=== PATIENT | male | born 1935 | race Caucasian/White ===

== ENCOUNTER 2023-02-01 06:37 | Observation (INO) ==
--- NOTE | 2023-01-17 09:26 | PAT Medication Instructions ---
Medication Instructions Date of Service January 17, 2023 Home Medications allopurinol 300 mg tablet 300 mg PO QAM aspirin 81 mg capsule 81 mg PO QAM biotin 5,000 mcg chewable tablet 5,000 mcg PO QAM cetirizine 10 mg tablet (Zyrtec) 10 mg PO QAM cholecalciferol (vitamin D3) 50 mcg (2,000 unit) tablet (Vitamin D3) 50 mcg PO QAM citalopram 40 mg tablet 40 mg PO QAM cyanocobalamin (vitamin B-12) 500 mcg tablet (Vitamin B-12) 500 mcg PO QAM mirtazapine 30 mg tablet 30 mg PO HS mometasone 0.1 % topical solution 1 applic topical HS mometasone 50 mcg/actuation nasal spray 1 spray intranasal QAM omeprazole 40 mg capsule,delayed release 40 mg PO QAM STOP taking 2 weeks before surgery (or as soon as possible if surgery is within 2 weeks) biotin 5,000 mcg chewable tablet 5,000 mcg PO QAM DO NOT take the morning of surgery cetirizine 10 mg tablet (Zyrtec) 10 mg PO QAM cholecalciferol (vitamin D3) 50 mcg (2,000 unit) tablet (Vitamin D3) 50 mcg PO QAM cyanocobalamin (vitamin B-12) 500 mcg tablet (Vitamin B-12) 500 mcg PO QAM Take morning of surgery With a small sip of water, OTHERWISE NOTHING TO EAT OR DRINK AFTER MIDNIGHT: allopurinol 300 mg tablet 300 mg PO QAM aspirin 81 mg capsule 81 mg PO QAM (unless directed otherwise by surgeon) citalopram 40 mg tablet 40 mg PO QAM mometasone 50 mcg/actuation nasal spray 1 spray intranasal QAM omeprazole 40 mg capsule,delayed release 40 mg PO QAM Take evening before surgery mirtazapine 30 mg tablet 30 mg PO HS mometasone 0.1 % topical solution 1 applic topical HS Other Notes If you have any questions please call us at [phone] or [phone] or [phone] or [phone]
--- NOTE | 2023-01-23 12:15 | Anesthesiology Consultation ---
Date of Service January 23, 2023 Assessment & Plan (1) Encounter for pre-operative examination: Chart Review Chart Review: Pending: Refer to Additional Notes / Consult section (pending surgeon ordered PCP clearance ) and Patient seen in Pre Admission Testing - Please fax preop testing results to PCP- [facility] [place], [place] (office phone number ; fax number [phone])- awaiting surgeon ordered PCP clearance (PCP awaiting preop testing) - Patient is NOT an OPJ candidate Per PAT appt on 01/23/23- no recent Covid exposures, Covid related symptoms, or recent Covid positive tests. Will leave to surgeon's discretion if preop Covid testing needed. Educated on importance of using Covid precautions one week prior to surgery Teaching & Discussion Pre-Anesthesia Teaching/Discussion Notes: Instructed NPO after midnight before surgery,except medications with 15 cc of water. Medication instructions provided according to the PAT guidelines. History Surgery Operation Date: 02/01/23 08:50 Proposed Procedures p Right Total Hip Arthroplasty Hybird with Cemented Femoral Stem and Dual Mobillity Cup - Jason Carmona MD Height/Weight Height: 5 ft 5.5 in Weight: 94.6 kg Allergies Allergy/AdvReac Type Severity Reaction Status Date / Time ciprofloxacin [From Cipro] Allergy Intermediate Hives Verified 01/12/23 10:13 Sulfa (Sulfonamide Allergy Intermediate Hives Verified 01/12/23 10:13 Antibiotics) Medications Home Medications Medication Instructions Recorded Confirmed Last Taken allopurinol 300 mg tablet 300 mg PO QAM 01/12/23 01/12/23 Unknown aspirin 81 mg capsule 81 mg PO QAM 01/12/23 01/12/23 Unknown biotin 5,000 mcg chewable tablet 5,000 mcg PO QAM 01/12/23 01/12/23 Unknown cetirizine 10 mg tablet (Zyrtec) 10 mg PO QAM 01/12/23 01/12/23 Unknown cholecalciferol (vitamin D3) 50 50 mcg PO QAM 01/12/23 01/12/23 Unknown mcg (2,000 unit) tablet (Vitamin D3) citalopram 40 mg tablet 40 mg PO QAM 01/12/23 01/12/23 Unknown cyanocobalamin (vitamin B-12) 500 500 mcg PO QAM 01/12/23 01/12/23 Unknown mcg tablet (Vitamin B-12) mirtazapine 30 mg tablet 30 mg PO 01/12/23 01/12/23 Unknown mometasone 0.1 % topical solution 1 applic topical 01/12/23 01/12/23 Unknown mometasone 50 mcg/actuation nasal 1 spray intranasal [facility] 01/12/23 01/12/23 Unknown spray omeprazole 40 mg capsule,delayed 40 mg PO QA 01/12/23 01/12/23 Unknown release Past Medical History Medical History Bladder stones History- cystolithopaxy September 2022 Chronic back pain Lower back Chronic sinusitis At baseline as of 01/23/23 PAT appt Depression GERD (gastroesophageal reflux disease) Well controlled and stable with medication Gout No recent issue History of COVID-11 September 2022 -> flu like symptoms. treated with paxlovid. no current problems History of diverticulitis (2020) flare up -> treated in 04/2021. no problems since. History of prostate cancer (1997) prostatectomy only- no chemo or XRT Hx of basal cell carcinoma s/p excision (Mohs procedure) right ear Hyperlipidemia hx - no problems since weightloss years ago Hypertension hx - no problems since weightloss years ago Kidney stones hx - reason for allopurinol Pulmonary embolism (2020) 2020 d/t a period of time of inactivity r/t being ill and treated with eliquis x 4 months. no problems since. Seasonal allergies Sleep apnea S/p sinus surgery/tonsillectomy/adenoidectomy/UPPP. was unsuccessful. patient had an at home sleep study on 01/10/23 and awaiting the results from [facility] [place] & PCP. Exercise / Class Metabolic Activity III < 4 Walking/Shop/Light housework (one flight of stairs- no chest pain or SOB- goes slow - seldom use of cane ) Past Family History Family History Other No family history of adverse response to anesthesia Past Surgical History Surgical History History of adenoidectomy History of bladder surgery cytolitholapaxy History of cataract surgery bilateral History of cholecystectomy History of colonoscopy History of esophagogastroduodenoscopy (EGD) History of nasal septoplasty History of tonsillectomy Hx of lithotripsy Hx of prostatectomy Hx of removal of cyst mandibular cyst removal S/P epidural steroid injection 1+ years ago S/P Mohs surgery for basal cell carcinoma Status post uvulopalatopharyngoplasty Past Anesthesia History No Hx of Anesthesia Complications and No Family Hx of Anesthesia Complications History of PONV No Hx of PONV and No Hx of Motion Sickness Social History Smoking Status: Never smoker Do You Dip or Chew Tobacco: No Hx Alcohol Use: Yes Alcohol type: wine and hard liquor alcohol intake frequency: a few times a week Hx Substance Use: No substance use type: does not use Review of Systems Patient denies chest pain, shortness of breath, dyspnea on exertion, cough, wheezing, palpitations. No hx of seizures, stroke, CA. No hx of blood transfusions Physical Exam Vital Signs VITALS BP 125/89 P 84 TEMP 98.1 SP02 93% RESP 16 Constitutional no acute distress ENMT Mouth: no TMJ clicking Thyromental Distance: > or= 3.5 Finger Breadths (3.5) Mallampati Class: I Missing molars and side teeth Possible crown to side tooth Neck + limited neck extension Respiratory normal respiratory effort; no respiratory distress Auscultation: lungs clear to auscultation bilaterally; no wheezes Cardiovascular Rate/Rhythm: regular rate and regular rhythm Heart Sounds: no murmur Vessels: no carotid bruit Musculoskeletal Spine: + pain with cervical ROM (stiffness ) Extremities: extremities normal to inspection Psychiatric Orientation: alert Lab Results Anesthesia Preop Results Results Anesthesia Widget: WBC 9.93 K/ul (4.8-10.8) 01/23/23 Hgb 13.4 g/dl (14.0-18.0) L 01/23/23 Hct 41.4 % (42.0-52.0) L 01/23/23 Plt 226 K/uL (130-400) 01/23/23 Na 138 mmol/L (136-145) 01/23/23 K 4.7 mmol/L (3.5-5.1) 01/23/23 Cl 104 mmol/L (98-107) 01/23/23 CO2 29 mmol/L (21-32) 01/23/23 BUN 17 mg/dl (6-23) 01/23/23 Creat 1.43 mg/dl (0.6-1.4) H 01/23/23 Glucose Level 85 mg/dl (70-99(Fasting)) 01/23/23 PT 10.7 Seconds (9.0-12.0) 01/23/23 PTT 28.2 Seconds (21.0-31.0) 01/23/23 INR 1.0 (0.9-1.1) 01/23/23 Urine Color Yellow 01/23/23 Urine Appearance Clear (Clear) 01/23/23 Urine pH 5.5 (4.5-7.5) 01/23/23 Urine Specific [place] 1.024 (1.000-1.030) 01/23/23 Urine Protein 3+ (Negative) H 01/23/23 Urine Glucose (UA) Negative (Negative) 01/23/23 Urine Ketones Trace (Negative) H 01/23/23 Urine Blood Trace (Negative) H 01/23/23 Urine Nitrite Negative (Negative) 01/23/23 Urine Bilirubin Negative (Negative) 01/23/23 Urine Urobilinogen Negative (Negative) 01/23/23 Urine Leukocyte Esterase Negative (Negative) 01/23/23 Urine WBC (Auto) 1-5 /hpf (0-5) 01/23/23 Urine RBC (Auto) 0-4 /hpf (0-4) 01/23/23 Urine Hyaline Casts (Auto) 5-10 /lpf (0-5) H 01/23/23 Urine Epithelial Cells (Auto) 10-20 /lpf (0-5) H 01/23/23 Urine Bacteria (Auto) Negative (Negative) 01/23/23 Blood Type O Positive 01/23/23 Antibody Screen NEGATIVE 01/23/23 Testing Laboratory Results Elevated creatinine- presumed chronic and stable- creat 1.3 with 12/28/22 labs Electrocardiogram Date: 01/23/23 Findings: + NSR @ (79bpm ) Possible inferior infarct (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 No prior studies are available for comparison at the time of dictation. The heart is mildly enlarged noting atherosclerotic calcification of the thoracic aorta. The pulmonary vasculature is noncongested. Chronic interstitial thickening is previous. There is bibasilar scarring/atelectasis. The lungs and pleural spaces are otherwise clear. There is no pneumothorax. The skeletal structures are osteopenic. The bony thorax appears intact. Degenerative change is noted in the spine. Cholecystectomy clips are seen in the upper abdomen. IMPRESSION: Cardiomegaly with no active disease in the chest.
[~2023-02-01 06:37] MED LIST: DEXAMETHASONE SOD INJ 4 MG/ML VIAL ONE; LIDOCAINE 2% 2 ML VIAL/AMP(20MG/ML) INFIL ONE; LR 500ML BOLUS, THEN 15ML/HR IV SCH; LR 60ML/HR IV SCH; MIDAZOLAM HCL 1 MG/ML 2ML VIAL ONE; ONDANSETRON INJ 2 MG/ML 2 ML VIAL ONE; PROPOFOL IV EMULSION 10 MG/ML 20 ML VIAL IV ONE; ROPIVACAINE 0.5% HCL/PF 150 MG, BUPIVACAINE 0.75% MPF 20 ML, EPINEPHrine 0.15 MG, Ketor... INFIL SCH; TRANEXAMIC ACID 1,000 MG x 1 **For Topical Use TOP SCH; ceFAZolin 2000MG 2,000 MG/15 ML SYR IV SCH; fentaNYL citrate PF 100 MCG/2 ML VIAL ONE
[2023-02-01] MEDS ORDERED: BUPIVACAINE 0.5 % 5 MG/1 ML PF 10ML VIAL ONE (06:45)
[2023-02-01] MEDS ORDERED: PROMETHAZINE HCL 12.5 MG in SODIUM CHLORIDE 0.9% 50 ML IV PRN (08:22)
[2023-02-01] MEDS ORDERED: HYDROmorphone INJ 1 MG/ML SYRINGE IV PRN (08:22)
[2023-02-01] MEDS ORDERED: ePHEDrine sulfate 50 MG/ML AMP IV PRN (08:22)
[2023-02-01] MEDS ORDERED: ONDANSETRON INJ 2 MG/ML 2 ML VIAL IV PRN ×2 (08:22→12:16)
[2023-02-01] MEDS ORDERED: ATROPINE SULFATE 0.1 MG/ML 10ML SYR IV PRN (08:22)
[2023-02-01] MEDS ORDERED: ORTHO JOINT ANESTHETIC ONE (08:46)
--- NOTE | 2023-02-01 08:46 | History & Physical Bridge Note ---
Date of Service February 01, 2023 History & Physical Bridge Note I have examined the patient, reviewed the History & Physical and in the interval since the performance of the History & Physical I have noted the following changes of clinical significance: consent obtained/site verified/discussed cement utilization.no changes noted.
[2023-02-01] MEDS ORDERED: PHENYLEPHRINE 100MCG/ML 5ML SYR ONE (09:36)
[2023-02-01] MEDS ORDERED: ePHEDrine sulfate 50 MG/ML SYR ONE (09:36)
--- NOTE | 2023-02-01 10:58 | Post Operative Brief Note ---
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
--- NOTE | 2023-02-01 11:05 | Operative Report ---
Post Operative Report Pre & Post Diagnosis Operation Date: 02/01/23 08:50 Pre-Op Diagnosis: Right Hip End-Stage Degenerative Joint Disease Post-Op Diagnosis: Right Hip End-Stage Degenerative Joint Disease I identified the patient and participated in the time-out.: Yes Procedure Operation Date: 02/01/23 08:50 Actual Procedures p Right Total Hip Arthroplasty Hybird with Cemented Femoral Stem and Dual Mobillity Cup(Right) - Jason Carmona MD Surgeon Jason Carmona MD Credit Operations Specialist Pb/Matt Estimated Blood Loss 200 Findings Consistent with Post-Op Diagnosis Severe DJD right hip Fluids See anesthesia report Specimens Bone specimens Drains None Complications None Indications Severe right hip pain Description of Procedure Medically cleared male with intractable right hip pain is cleared for surgery has a somewhat higher risk than normal based on age and comorbidities. Due to his age it was elected to use cement for the femur. He understands risk and consequences. Due to his age and a stiff back dual mobility cup was also elected. Procedure patient identified site provide consent provide antibiotics for him to be given the patient was placed in the left lateral cubitus position right lower extremity prepped and draped routine fashion. Posterior approach to the hip made. Sharp dissection to the fascia blunt dissection down to subcutaneous tissue along the fascia. Once good flaps were raised the fascia was then incised with the thermal device and retractors placed care taken to protect the sciatic nerve which was palpated. Once this was done the short external rotators were released the capsule was then teed the hip was dislocated the femoral neck resected. It was severely deformed. Acetabular exposure was excellent. There was some marked osteophytes around the rim these were excised. The labrum was all excised. The serial reaming was carried up to a size 52 and a 52 cup impacted into position and secured with a 6.5 x 30 screw with excellent purchase. The permanent dual mobility liner was then seated. Femur was then flexed and internally rotated proximal femur. With a box printing machine operator canal finder reaming rasps and then the size 2 trial was was carried out the lateralized stem was way too tight. Normal offset was excellent. +4 head was excellent. The stability was excellent the leg lengths were relatively equal. The hip was then dislocated the trial elements remaining were removed wound was irrigated with Betadine Pulsavac and the permanent stem cemented into position with a canal restrictor and cement spacing. After 14 minutes the cement was cured everything was cleaned and then the permanent head and neck seated and then the hip reduced and was stable in all planes. It was then ramírez irrigated and closed with #2 Vicryl for the capsule for the short external rotators for the IT band and for the deep fat the wound was then injected with Ortho mix and then the superficial tissue closed with 2-0 Vicryl and standstill clips appropriate dressing applied patient transferred recovery in satisfactory addition he tolerated the procedure well. Summary of implants size 52 acetabular shell sector cup: Meter cancellous screw 6.5 x 3052 metal liner 2 standard cemented [place] stem 9.25 centralizer 22.25 x 45 by mentum liner in the femoral taper head articular least 22.25+4. All [employer] implants. DVT prophylaxis per protocol with him we will use Eliquis based on his history. Aggressive weightbearing as tolerated mobilization out of bed postural and discretion restrictions apply for 6 months. Case management to follow. I attest to the content of the Intraoperative Record and any orders documented therein. Any exceptions are noted below.
--- NOTE | 2023-02-01 11:15 | Operative Report ---
Post Operative Report Pre & Post Diagnosis Operation Date: 02/01/23 08:50 Pre-Op Diagnosis: Right Hip End-Stage Degenerative Joint Disease Post-Op Diagnosis: Right Hip End-Stage Degenerative Joint Disease I identified the patient and participated in the time-out.: Yes Procedure Operation Date: 02/01/23 08:50 Actual Procedures p Right Total Hip Arthroplasty Hybird with Cemented Femoral Stem and Dual Mobillity Cup(Right) - Jason Carmona MD Surgeon RASHMI Carmona MD Client Associate Pb/Matt GILMORE Estimated Blood Loss 200 Findings Consistent with Post-Op Diagnosis see operative report Specimens see operative report Drains none Complications none Disposition Accompanied Patient To Recovery: Yes Indications This 87-year-old male presented to the office with complaints of persisting right hip pain. He had tried conservative care measures without improvement. He elected to proceed with surgical intervention after being educated about potential risks and outcomes. Preoperative imaging was obtained. Description of Procedure The patient was administered a spinal anesthetic and then taken to the operating room where he was given sedation. He was prepped and draped in the usual sterile fashion. Please see Dr. Carmona's operative report for specifics of the procedure. I was present for the entire case from initial patient positioning through final wound closure. Assistance was provided in tissue retraction, hemostasis, trial implant placement, final implant placement, and final wound closure. The patient was taken to the recovery room in satisfactory condition. I attest to the content of the Intraoperative Record and any orders documented therein. Any exceptions are noted below.
--- NOTE | 2023-02-01 11:23 | Orthopedic Progress Note ---
Date of Service February 01, 2023 Assessment & Plan (1) Status post right hip replacement: Plan Assessment status post total hip replacement right allow weightbearing to tolerance when x-rays are obtained and look appropriate. Case management to assess for discharge tomorrow. DVT prophylaxis PE prophylaxis with his baseline medication. Will begin Eliquis 2.5 mg p.o. twice daily tomorrow. Orthopedic Progress Note Postop check status post hybrid right total hip replacement with cemented femoral stem. Patient is doing reasonly well denies any chest pain shortness of breath fever chills nausea vomiting or headache. Vital signs are stable he is afebrile. Neurovascular check is limited by spinal. X-rays pending.
[2023-02-01] MEDS ORDERED: METOCLOPRAMIDE HCL INJ 5 MG/ML 2 ML VIAL IV PRN (12:16)
[2023-02-01] MEDS ORDERED: ALUMINUM/MAGNESIUM SUSP 30 ML UDC PO PRN (12:16)
[2023-02-01] MEDS ORDERED: HYDROmorphone INJ 0.5 MG/0.5 ML SYR IV PRN (12:16)
[2023-02-01] MEDS ORDERED: diphenhydrAMINE 50 MG/ML VIAL IV PRN (12:16)
[2023-02-01] MEDS ORDERED: NALOXONE HCL 0.4 MG/1 ML VIAL/CARP IV PRN (12:16)
[2023-02-01] MEDS ORDERED: SODIUM CHLORIDE 0.9% 1000ML 1,000 ML IV SCH (12:16)
[2023-02-01] MEDS ORDERED: oxyCODONE HCL IR 5 MG TAB (IMMEDIATE RELEASE) PO PRN (12:16)
[2023-02-01] MEDS ORDERED: TAMSULOSIN HCL 0.4 MG CAP PO PRN (12:16)
[2023-02-01] MEDS ORDERED: bisacodyL 10 MG SUPP PR PRN (12:16)
[2023-02-01] MEDS ORDERED: MAGNESIUM HYDROXIDE SUSP 30 ML UDC PO PRN (12:16)
--- NOTE | 2023-02-01 12:20 | XRay Report ---
XR pelvis 1-2V routine CLINICAL HISTORY: S/P R GLADYS TECHNIQUE: A single frontal view of the pelvis was obtained. Comparison: Comparison is made to right hip radiograph 10/03/2022 FINDINGS: Patient is status post total hip arthroplasty with expected postsurgical changes including soft tissu e swelling, and subcutaneous emphysema. No periarticular lucency or hardware fracture is seen. IMPRESSION: Expected postoperative appearance status post placement of total hip arthroplasty. ACT 112: Negative or not required by law. Electronically signed by: John Hawkins M.D. 02/01/2023 12:17 PM
[2023-02-01] MEDS: KETOROLAC TROMETHAMINE 15 MG/ML VIAL IV SCH ×3 (12:59→23:13)
[2023-02-01] MEDS: ACETAMINOPHEN 500 MG TAB PO SCH ×2 (13:00→20:58)
--- NOTE | 2023-02-01 14:35 | Anesthesiology Progress Note ---
Date of Service February 01, 2023 Anesthesia Post Procedure Vital Signs Vital Signs: Temp Pulse Pulse Resp BP Pulse Ox O2 Del Method 02/01/23 13:30 36.2 C L 101 H 16 134/77 93 Room Air 02/01/23 12:56 36.7 C 94 H 18 129/87 92 Room Air 02/01/23 12:28 36.6 C 85 18 116/75 94 Room Air 02/01/23 12:00 36.3 C L 92 H 20 114/64 94 Room Air 02/01/23 11:50 95 H 20 132/87 94 Room Air 02/01/23 11:40 90 18 121/83 95 Room Air 02/01/23 11:30 89 16 114/81 94 Room Air 02/01/23 11:20 90 20 113/73 98 Oxymask 02/01/23 11:10 36.6 C 93 H 14 135/86 97 Oxymask 02/01/23 07:34 36.9 C 91 H 18 151/102 H 94 Room Air O2 Flow Rate 02/01/23 13:30 02/01/23 12:56 02/01/23 12:28 02/01/23 12:00 02/01/23 11:50 02/01/23 11:40 02/01/23 11:30 02/01/23 11:20 3 02/01/23 11:10 5 02/01/23 07:34 Transfer of Care Handoff Completed per policy Notes Mental Status: alert / awake / arousable and participated in evaluation Nausea / Vomiting: adequately controlled Pain: adequately controlled Airway Patency, RR, SpO2: stable & adequate BP & HR: stable & adequate Hydration State: stable & adequate Neuraxial Anesthesia: was administered and sensory block is resolving Anesthetic Complications: no major complications apparent and Pt Satisfied with anesthetic care
--- NOTE | 2023-02-01 15:32 | Orthopedic Progress Note ---
Date of Service February 01, 2023 Assessment & Plan (1) Status post right hip replacement: Plan: Continue care plan is doing well. Plan Assessment status post total hip replacement right allow weightbearing to tolerance when x-rays are obtained and look appropriate. Case management to assess for discharge tomorrow. DVT prophylaxis PE prophylaxis with his baseline medication. Will begin Eliquis 2.5 mg p.o. twice daily tomorrow. Admission and Anticipated Discharge Date Admission Date: February 01, 2023 Orthopedic Progress Note Sitting up in chair doing well.Wound dressing clean dry and intact.Neurovascular check from the sciatic nerve is normal.Eating and drinking well.Saline lock IV. Postop check status post hybrid right total hip replacement with cemented femoral stem. Patient is doing reasonly well denies any chest pain shortness of breath fever chills nausea vomiting or headache. Vital signs are stable he is afebrile. Neurovascular check is limited by spinal. X-rays pending.
--- NOTE | 2023-02-01 15:37 | Discharge Summary ---
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 Admission Exam Per Admitting Provider Hip located neurovascular check femoral sciatic nerve is normal x-rays postop look excellent Principal Diagnosis r hip replacement Discharge Data Allergies Allergy/AdvReac Type Severity Reaction Status Date / Time ciprofloxacin [From Cipro] Allergy Intermediate Hives Verified 02/01/23 07:24 Sulfa (Sulfonamide Allergy Intermediate Hives Verified 02/01/23 07:24 Antibiotics) Procedures Performed Operation Date: 02/01/23 08:50 Actual Procedures p Right Total Hip Arthroplasty Hybird with Cemented Femoral Stem and Dual Mobillity Cup(Right) - Jason Carmona MD Hospital Course (1) Status post right hip replacement: Continue care plan is doing well. Plan Assessment status post total hip replacement right allow weightbearing to tolerance when x-rays are obtained and look appropriate. Case management to assess for discharge tomorrow. DVT prophylaxis PE prophylaxis with his baseline medication. Will begin Eliquis 2.5 mg p.o. twice daily tomorrow. Total Time Total Time Spent Total Time Spent (In Minutes): 10 Discharge Plan Discharge Items Patient Disposition: Home - Self-Care Reason For Visit: Right Hip Osteoarthritis Discharge Diagnosis: Right hip s/p total hip replacement Condition on Discharge: Good Activity: Per Instructions section Lifting: Wait until after follow-up appointment Bathing: Keep incision dry Exercise/Sports: Wait until after follow-up appointment Driving/Machine Use: No driving until cleared by Dr. Carmona Weightbearing: Full weightbearing Non-emergency contact: Surgeon Call non-emergency contact if: you have any medication questions, your pain is not controlled, your temperature is above 101, your wound has increased redness, your wound has increased drainage and your wound pain has increased Follow-up/Referrals: PCP,NO [Primary Care Provider] - Diet: Heart Healthy Addtl Attending Provider Instructions: New Medicine: * You will likely be taking one or more of these medicines: 1. Percocet - Take, as directed, when you need it, every four to six hours to control your pain. 2. Iron Sulfate - Take 1 time each day for the month after surgery to help you replace the blood lost during surgery. 3. Eliquis - Thins your blood to lessen the chance of forming a blood clot. * The most common side effects of pain medicine and iron are nausea and constipation. If nausea or constipation is too much of a problem or if you have any questions about your new medicines or doses, call [facility] at . We will try to help you manage these issues. "VERY IMPORTANT TO READ AND REVIEW" Blood Clots and Blood Thinning Medicine: * You are given Eliquis during the immediate post-operative period to lessen the risk of blood clots forming in your legs and/or lungs. It is usually given for six weeks after surgery. Pain: * The immediate post-operative period after hip replacement surgery is often quite painful. * You are given a prescription for pain medicine. You should take it, as directed, when you need it, especially before physical therapy and before going to bed. Pain that interferes with sleep is very common and can last several months. * You will likely need pain medicine for the first two to four weeks. It will not stop all of the pain. The pain will lessen and as you feel better, you may change to milder pain medicine such as Tylenol. * The most common side effects of pain medicine are nausea and constipation, so don't take more than you need. Physical Therapy: * Follow the "Hip Precautions Instructions." * In some cases, the social work msw at the hospital will arrange to have a therapist come to your house for the first couple of weeks to help you learn these skills. * You need to practice on your own or with the help of a family member as needed. * When you learn these skills, most of the therapy can be done on your own. Home Exercise: * You were shown a series of exercises in the hospital. Do these exercises three to four times each day including the exercises you were shown in physical therapy. Walking: * Get up and walk several times each day. For the first four weeks, try not to stand or walk for more than one hour at a time. If you do stand or walk for more than one hour, you will not hurt anything, but your leg will likely swell. * As you feel comfortable, you may change from the walker or crutches to a cane and then to independent walking. SELF CARE INSTRUCTIONS AFTER TOTAL HIP REPLACEMENT Until the incision and soft tissues around your hip have healed, there is a possibility that the hip prosthesis could dislocate. A. Observe the following precautions to prevent dislocation: 1. Don't bend your hip greater than 90 degrees. 2. Avoid crossing your legs or ankles while standing or lying. 3. Sit with your feet placed 6 inches apart. 4. When sitting, keep your knees below your hips. Sit on a firm surface, avoid deep, soft chairs and couches. Use an elevated toilet seat in the bathroom. 5. Don't bend over at the waist. Use a long handled shoehorn and a sock aid to help you put on your shoes and socks. A critical care rn can help you picker and packer objects that are too high or too low to reach. 6. Keep car riding to a minimum for at least one month after surgery. B. Your balance may be shaky for a while. Use crutches or a walker until directed by your doctor. C. Use hand rails when walking on stairs. D. Wear low heeled shoes with non-slip soles. E. Be sure that your floors are free of things that could trip you - throw rugs, electrical cords, small objects. Avoid wet and waxed floors, especially with crutches and canes. F. Try to walk several times a day with rest periods between. G. Continue with all the exercises taught to you in the hospital. Again, make walking a part of your daily routine. VERY IMPORTANT TO READ AND REVIEW A. There are a few signs you need to watch for after you are home. If you notice any of the followin. Increased severe hip pain. Some pain is expected especially when you exercise. 2. Increased swelling in your leg or knee; pain or swelling of the calf muscle in either lower leg. 3. Any fluid drainage from the incision. 4. Shortness of breath or chest pain. TEDs/Elastic Stockings: * The white elastic stockings help limit swelling and prevent blood clots from forming in your legs. The more you wear them, the more they work. * Wear them for six weeks. Prevention of Infection: * Take antibiotics one hour before any dental cleaning, dental work, urological procedure, gastrointestinal procedure or any invasive surgery in order to prevent your new joint from getting infected. * You may get the antibiotics from the doctor performing the procedure or we will call in a prescription to the pharmacy of your choice. Call the office for a prescription at least 2 days prior to your appointment. Things to Watch For: * Drainage from the incision site that occurs more than one week after your clemens rgery. * Severely increased leg pain or swelling. * Increased redness at the incision site. * Fever above 101 degrees Fahrenheit. * Unusual chest pain or shortness of breath. * Unusual pain or burning with urination. Take Eliquis 1 pill 2x day x 6 weeks use your walker for ambulation follow up in the office in 2 weeks as scheduled with Freya for staple removal Keep the dressing in place through the weekend. It can be changed on Monday for soiling if needed Pending Studies at Discharge: Yes Studies:: Bone pathology Stand-Alone Forms: My [facility] [employer], Smoking Cessation Medications and DC Order Prescriptions: No Action citalopram [Celexa] 40 mg Tablet 40 mg PO QAM cetirizine [Zyrtec] 10 mg Tablet 10 mg PO QAM omeprazole 40 mg Capsule,Delayed Release(Dr/Ec) 40 mg PO QAM cyanocobalamin (vitamin B-12) [Vitamin B-12] 500 mcg Tablet 500 mcg PO QAM mirtazapine [Remeron] 30 mg Tablet 30 mg PO HS mometasone [Nasonex 24hr Allergy] 50 mcg/actuation [place],Non-Aerosol 1 spray INTRANASAL QAM Rx Instructions: administer into each nostril allopurinol 300 mg Tablet 300 mg PO QAM mometasone 0.1 % Solution 1 applic topical HS cholecalciferol (vitamin D3) [Vitamin D3] 50 mcg (2,000 unit) Tablet 50 mcg PO QAM aspirin 81 mg Capsule 81 mg PO QAM biotin 5,000 mcg Tablet,Chewable 5,000 mcg PO QAM Discharge Orders: Discharge Order (Routine); Ordered 02/02/23 Ordered By: Jason Carmona Admission Data Admit Date/Time: 02/01/23 11:22 Attending Provider: Jason Carmona Admit Provider: Jason Carmona Primary Care Provider: PCP,NO Other Providers: [facility],Home Health
[2023-02-01] MEDS: ASCORBIC ACID 500 MG TAB PO SCH (16:44)
[2023-02-01] MEDS: FERROUS GLUCONATE 324 MG TAB PO SCH (16:44)
[2023-02-01] MEDS: ceFAZolin 2000MG 2,000 MG/15 ML SYR IV SCH (16:46)
[2023-02-01] MEDS: DOCUSATE SODIUM 100 MG CAP PO SCH (20:57)
[2023-02-01] MEDS ORDERED: SENNA 8.6 MG TAB PO SCH (21:00)
[2023-02-01] MEDS ORDERED: MIRTAZAPINE TAB 15 MG TAB PO SCH (21:00)
[2023-02-02] MEDS: ceFAZolin 2000MG 2,000 MG/15 ML SYR IV SCH (01:04)
[2023-02-02] MEDS: KETOROLAC TROMETHAMINE 15 MG/ML VIAL IV SCH (05:43)
[2023-02-02] MEDS: ACETAMINOPHEN 500 MG TAB PO SCH (05:43)
[2023-02-02 06:43] LABS: Basophils # (auto) 0.01 K/uL (0-0.2); Basophils % (auto) 0.1 %; Hematocrit (blood only) 31.9 % (42.0-52.0); Hemoglobin 10.5 g/dl (14.0-18.0); Immature Granulocytes # (auto) 0.07 K/uL (0.01-0.20); Immature Granulocytes % (auto) 0.5 %; Lymphocytes % (auto) 13.9 %; Mean Corpuscular Hemoglobin 30.7 pg (25.0-34.0); Mean Corpuscular Hgb Conc 32.9 g/dL (32.0-36.0); Mean Corpuscular Volume 93.3 fL (80.0-100.0); Mean Platelet Volume 9.8 fL (9.4-12.4); Monocytes % (auto) 7.3 %; Neutrophils # (auto) 11.87 K/uL (1.40-6.50); Neutrophils % (auto) 78.2 %; Platelet Count 183 K/uL (130-400); RDW Coefficient of Variation 13.9 % (11.5-14.5); RDW Standard Deviation 47.4 fL (36.4-46.3); Red Blood Count 3.42 M/uL (4.70-6.10); White Blood Count 15.15 K/ul (4.8-10.8)
[2023-02-02 06:51] LABS: BUN Creatinine Ratio 17.5 (10-20); Creatinine Clr Calc Pharmacy 34.2 ml/min; Est GFR (African American) 44.2 ml/min; Est GFR (Non-African American) 38.2 ml/min; Potassium 4.6 mmol/L (3.5-5.1)
--- NOTE | 2023-02-02 07:39 | Orthopedic Progress Note ---
Date of Service February 02, 2023 Assessment & Plan (1) Status post right hip replacement: Plan: Continue care plan is doing well. Plan Assessment status post total hip replacement right allow weightbearing to tolerance when x-rays are obtained and look appropriate. Case management to assess for discharge tomorrow. DVT prophylaxis PE prophylaxis with his baseline medication. Will begin Eliquis 2.5 mg p.o. twice daily tomorrow. Admission and Anticipated Discharge Date Admission Date: February 01, 2023 Subjective Did well overnight has no major issues. Denies chest pain shortness of breath fever chills nausea vomiting or headache. Vital signs are stable he is afebrile. Neurovascular check femoral sciatic nerve is normal. Wound dressing clean dry and intact hip located. Laboratory work looks good. Assessment doing well discharged home today after dressing change and PT OT. Begin Eliquis today. Results & Data Vital Signs (Past 12 Hours) Vital Signs Temp Pulse Resp BP Pulse Ox O2 Del Method 02/02/23 03:17 36.6 C 84 17 115/78 95 Room Air 02/01/23 23:04 36.6 C 88 17 125/77 97 Room Air 02/01/23 20:23 89
[2023-02-02] MEDS ORDERED: dexAMETHasone 10 MG in SYRINGE 0 ML IV SCH (08:00)
[2023-02-02] MEDS: DOCUSATE SODIUM 100 MG CAP PO SCH (08:12)
[2023-02-02] MEDS: FERROUS GLUCONATE 324 MG TAB PO SCH (08:12)
[2023-02-02] MEDS: ASCORBIC ACID 500 MG TAB PO SCH (08:12)
[2023-02-02] MEDS ORDERED: allopurinoL 300 MG TAB PO SCH (09:00)
[2023-02-02] MEDS ORDERED: APIXABAN 2.5 MG TAB PO SCH (09:00)
[2023-02-02] MEDS ORDERED: FLUTICASONE PROPIONATE NA SPR 16 GM BTL SCH (09:00)
[2023-02-02] MEDS ORDERED: MULTIVITAMIN TAB PO SCH (09:00)
[2023-02-02] MEDS ORDERED: CITALOPRAM 40 MG TAB PO SCH (09:00)
[2023-02-02] MEDS ORDERED: CYANOCOBALAMIN (B-12) 500 MCG TABLET PO SCH (09:00)
[2023-02-02] MEDS ORDERED: ASPIRIN 81 MG ECTAB PO SCH (09:00)
[2023-02-02] MEDS ORDERED: PANTOprazole 40 MG TAB PO SCH (09:00)
[2023-02-02] MEDS ORDERED: CETIRIZINE HCL 10 MG TABLET PO SCH (09:00)
--- NOTE | 2023-02-02 09:04 | Orthopedic Progress Note ---
Date of Service February 02, 2023 Assessment & Plan (1) Status post right hip replacement: Plan: The patient was educated regarding today's findings. The postsurgical dressing was changed today by me. This should remain in place throughout the weekend. It can be changed on Monday if there is soiling. It may also be left in place until he is seen in the office in 2 weeks as scheduled. Written discharge instructions were provided. Discharge to home today after PT/OT Prescriptions for Percocet and Eliquis have been sent to his pharmacy. Start home health and home PT tomorrow as scheduled with [facility]. Total hip precautions were reviewed. Admission and Anticipated Discharge Date Admission Date: February 01, 2023 Subjective This 87-year-old male is seen today in his room. He is 1 day status post right total hip arthroplasty. He states he is doing fairly well. Pain is controlled. He has been out of bed several times. He has already finished his breakfast. Denies any chest pain, shortness of breath, nausea, vomiting, or abdominal pain overnight or this morning. He feels ready to go home today. No other complaints. Review of Systems Review of Systems: Unchanged from yesterday. Physical Exam Physical Exam: General: Well-developed, well-nourished, elderly male, in no acute distress. Sitting in a chair. Alert and oriented. Conversive. Skin: Warm and dry with good turgor. No rashes. No ecchymosis or erythema. He has an intact surgical dressing on the right hip. Upon removal, there is scant dried blood on the inner dressing. No active bleeding from his surgical wound. Era are intact. Wound edges are well-approximated. No ecchymosis or edema yet. Musculoskeletal: The patient has intact motor function of his right leg. He is able to flex and rotate without difficulty. He is able to rise from a chair without assistance. He is able to stand using his walker. He has intact motor function of his knee and ankle as well. Neurologic: Gross sensation is intact across all aspects of the right leg by soft touch. Peripheral pulses are 2+. Results & Data Vital Signs (Past 12 Hours) Vital Signs Temp Pulse Resp BP Pulse Ox O2 Del Method 02/02/23 07:40 36.5 C 87 16 136/82 95 Room Air 02/02/23 03:17 36.6 C 84 17 115/78 95 Room Air 02/01/23 23:04 36.6 C 88 17 125/77 97 Room Air Laboratory Results CBC obtained today shows a white count of 15.15. Hemoglobin 10.5 and hematocrit 31.9. Platelets 183,000. PRP shows sodium 136, potassium 4.6, chloride 105. BUN of 28 with creatinine 1.6. Glucose 159.
== END 2023-02-02 10:57 | disposition home health service (06) ==
LOC: ASU 06:37 → 3E 06:37